=== PATIENT | male | born 1980 | race Two or more races ===

== ENCOUNTER 2020-12-14 14:02 | Emergency (ER) | payer MEDICAID ==
[~2020-12-14] VITALS: Ht 175.3 cm; Wt 99.8 kg
[2020-12-14] MEDS ORDERED: Morphine Sulfate 4mg/ml Inj (IV USE ONLY) IVP ONE (14:30)
[2020-12-14] MEDS ORDERED: Ketorolac 30mg Inj IV ONE (14:30)
[2020-12-14] MEDS ORDERED: DiphenhydrAMINE 50mg/ml Inj IVP ONE (14:30)
[2020-12-14] MEDS ORDERED: Metoclopramide 10mg/2ml Inj IVP ONE (14:30)
[2020-12-14 14:59] VITALS: BP 120/80
--- NOTE | 2020-12-14 15:02 | NUR ---
came to er complaints of left flank pain hx of stent placement in the left kidney x 3 months . per patient has hemayuria today seen at [facility] yesterday back today due to sever pain iv started meds given waiting for ultrasound
[2020-12-14 15:03] LABS: BASOPHILS % (AUTO) 0.6 % (0.0-2.0); EOSINOPHILS % (AUTO) 1.4 % (0.0-3.0); HEMATOCRIT 48.8 % (42.0-52.0); HEMOGLOBIN 16.1 G/DL (14.2-18.0); LYMPHOCYTES % (AUTO) 26.3 % (20.0-45.0); MEAN CORPUSCULAR VOLUME 86 FL (80-99); NEUTROPHILS % (AUTO) 64.7 % (45.0-75.0); PLATELET COUNT 281 K/UL (150-450); WHITE BLOOD COUNT 7.5 K/UL (4.8-10.8)
[2020-12-14 15:05] LABS: APPEARANCE,URINE SLIGHTLY CLOUDY; BILIRUBIN, URINE NEGATIVE (NEGATIVE); COLOR,URINE PALE YELLOW; GLUCOSE, URINE (UA) NEGATIVE (NEGATIVE); KETONES,URINE 1+ (NEGATIVE); LEUKOCYTE ESTERASE ,URINE 1+ (NEGATIVE); NITRITE,URINE NEGATIVE (NEGATIVE); PH,URINE 5 (4.5-8.0); PROTEIN,URINE 3+ (NEGATIVE); UROBILINOGEN,URINE NORMAL MG/DL (0.0-1.0)
--- NOTE | 2020-12-14 15:06 | Emergency Room Report ---
History of Present Illness General Chief Complaint: Male Urogenital Problems Source: Patient Present Illness HPI Patient presents with left flank pain. He had a stent placed 3 months ago. He denies any fevers or chills. In the morning he has hematuria which clears up during the day. He is always in pain and rates the pain 10/10. He denies taking any medication for the pain at this time. Denies nausea, vomiting or diarrhea. He is due to have the stent removed next Sunday but wants to have it done sooner. The patient was seen at [facility] last night and had an MRI performed. Patient denies exposure to Covid positive contacts. No sore throat, chest pain, palpitations, diarrhea, shortness of breath, joint pain, rashes, depression, anxiety, visual changes, dizziness, headache. He took his last Cipro this morning. He has [place] and Tylenol. He does not have Motrin. 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 Reviewed Nursing Documentation: PMH: Agreed; PSxH: Agreed Nursing Documentation-PMH Past Medical History: No History, Except For Hx COPD: No - KIDNEY STONES, STENT INFECTION Review of Systems All Other Systems: negative except mentioned in HPI Physical Exam Vital Signs Date Time Temp Pulse Resp B/P (MAP) Pulse Ox O2 Delivery O2 Flow Rate FiO2 12/14/20 14:14 98.4 105 18 118/77 (91) 95 Room Air Sp02 EP Interpretation: reviewed, normal General Appearance: well appearing, no apparent distress, GCS 15 Head: normocephalic Eyes: bilateral eye normal inspection, bilateral eye PERRL, bilateral eye EOMI ENT: moist mucus membranes Neck: supple Respiratory: lungs clear, normal breath sounds Cardiovascular #1: regular rate, rhythm Cardiovascular #2: 2+ radial (R) Gastrointestinal: normal inspection, normal bowel sounds, non tender, no mass, non-distended Genitourinary: CVA tenderness (L) - Reported Musculoskeletal: back normal, normal range of motion, gait/station normal Neurologic: alert, oriented x3, grossly normal Psychiatric: mood/affect normal Skin: no rash, warm/dry Medical Decision Making Diagnostic Impression: Primary Impression: Flank pain Additional Impressions: Left ureterovesicular stent Liver lesion ER Course Patient post renal stent placement here for evaluation and possible removal. Differential includes pyelonephritis, obstruction, UTI, painful stent amongst others. Patient evaluated with labs and ultrasound. Patient treated with IV hydration and analgesia. Patient has been on Cipro and stopped today. Labs with normal white count. Normal renal function. Some hematuria and mini mal pyuria. Ultrasound with minimal hydronephrosis left with stent. In addition liver mass noted. Patient improved with treatment. Discussed results with patient. No emergent condition at this time or need for inpatient treatment. Discussed the need for follow-up with the surgeons and neurologists at [facility]. Patient states he plans to go to [place] to have surgery performed there. Patient advised of the need of follow-up for the liver abnormality noted on ultrasound. Laboratory Tests Test 12/14/20 14:30 12/14/20 14:40 Urine Color Pale yellow Urine Appearance Slightly cloudy Urine pH 5 (4.5-8.0) Urine Specific [place] 1.020 (1.005-1.035) Urine Protein 3+ (NEGATIVE) H Urine Glucose (UA) Negative (NEGATIVE) Urine Ketones 1+ (NEGATIVE) H Urine Blood 5+ (NEGATIVE) H Urine Nitrite Negative (NEGATIVE) Urine Bilirubin Negative (NEGATIVE) Urine Urobilinogen Normal MG/DL (0.0-1.0) Urine Leukocyte Esterase 1+ (NEGATIVE) H Urine RBC 20-30 /HPF (0 - 0) H Urine WBC 5-10 /HPF (0 - 0) H Urine Squamous Epithelial Cells Occasional /LPF Urine Bacteria Occasional /HPF (NONE) White Blood Count 7.5 K/UL (4.8-10.8) Red Blood Count 5.70 M/UL (4.70-6.10) Hemoglobin 16.1 G/DL (14.2-18.0) Hematocrit 48.8 % (42.0-52.0) Mean Corpuscular Volume 86 FL (80-99) Mean Corpuscular Hemoglobin 28.3 PG (27.0-31.0) Mean Corpuscular Hemoglobin Concent 33.0 G/DL (32.0-36.0) Red Cell Distribution Width 12.0 % (11.6-14.8) Platelet Count 281 K/UL (150-450) Mean Platelet Volume 7.0 FL (6.5-10.1) Neutrophils (%) (Auto) 64.7 % (45.0-75.0) Lymphocytes (%) (Auto) 26.3 % (20.0-45.0) Monocytes (%) (Auto) 7.0 % (1.0-10.0) Eosinophils (%) (Auto) 1.4 % (0.0-3.0) Basophils (%) (Auto) 0.6 % (0.0-2.0) Prothrombin Time 12.1 SEC (9.30-11.50) H Prothrombin Time INR 1.1 (0.9-1.1) Activated Partial Thromboplast Time 32 SEC (23-33) Sodium Level 137 MMOL/L (136-145) Potassium Level 3.8 MMOL/L (3.5-5.1) Chloride Level 100 MMOL/L (98-107) Carbon Dioxide Level 26 MMOL/L (21-32) Anion Gap 11 mmol/L (5-15) Blood Urea Nitrogen 16 mg/dL (7-18) Creatinine 1.2 MG/DL (0.55-1.30) Estimated Glomerular Filtration Rate > 60 mL/min (>60) Glucose Level 115 MG/DL (74-106) H Calcium Level 9.3 MG/DL (8.5-10.1) Total Bilirubin 0.4 MG/DL (0.2-1.0) Aspartate Amino Transferase (AST) 29 U/L (15-37) Alanine Aminotransferase (ALT) 64 U/L (12-78) Alkaline Phosphatase 106 U/L (46-116) Total Creatine Kinase 160 U/L (26-308) Total Protein 8.5 G/DL (6.4-8.2) H Albumin 4.3 G/DL (3.4-5.0) Globulin 4.2 g/dL Albumin/Globulin Ratio 1.0 (1.0-2.7) Lipase 174 U/L (73-393) CT/MRI/US Diagnostic Results CT/MRI/US Diagnostic Results : Imaging Test Ordered: ultrasound abdomen Impression Impression: Hypoechoic right lobe liver lesion. There is nonspecific, diff erential considerations include neoplasm. Further evaluation with multiphasic liver protocol CT scan is recommended. This finding was discussed with nurse practitioner Renée Pearce in the emergency room at the time of interpretation Liver demonstrates diffusely increased echogenicity, consistent with diffuse hepatocellular disease, most likely fatty change. It is also enlarged. Left nephroureteral stent in place. Mild left hydronephrosis despite the stent Note incomplete visualization of the abdominal aorta Negative for gallstones or dilated bile ducts Last Vital Signs Date Time Temp Pulse Resp B/P (MAP) Pulse Ox O2 Delivery O2 Flow Rate FiO2 12/14/20 17:00 98.2 76 16 120/80 98 Room Air Status: improved Disposition: HOME, SELF-CARE Condition: Improved Scripts Ciprofloxacin Hcl* (CIPROFLOXACIN HCL*) 500 Mg Tablet 500 MG ORAL Q12H, #20 TAB 0 Refills Prov: Hardeep Hamilton MD 12/14/20 Ibuprofen* (MOTRIN*) 600 Mg Tablet 600 MG ORAL Q6H PRN for FOR PAIN, #20 TAB 0 Refills Prov: Hardeep Hamilton MD 12/14/20 Referrals: NOT CHOSEN IPA/,REFERRING (PCP) Hardeep Hamilton MD Dec 14, 2020 15:06
[2020-12-14 15:16] LABS: INR 1.1 (0.9-1.1)
[2020-12-14 15:18] LABS: ANION GAP 11 mmol/L (5-15); BLOOD UREA NITROGEN 16 mg/dL (7-18); CALCIUM 9.3 MG/DL (8.5-10.1); CARBON DIOXIDE 26 MMOL/L (21-32); CHLORIDE 100 MMOL/L (98-107); CREATININE 1.2 MG/DL (0.55-1.30); POTASSIUM 3.8 MMOL/L (3.5-5.1); SODIUM 137 MMOL/L (136-145)
[2020-12-14 15:21] LABS: ALANINE AMINOTRANSFERASE 64 U/L (12-78); ALBUMIN 4.3 G/DL (3.4-5.0); ALKALINE PHOSPHATASE 106 U/L (46-116); ASPARTATE AMINO TRANSFERASE 29 U/L (15-37); BILIRUBIN,TOTAL 0.4 MG/DL (0.2-1.0); CREATINE KINASE 160 U/L (26-308)
[2020-12-14] MEDS ORDERED: CIPROFLOXACIN500 M2 ORAL (16:02)
[2020-12-14] MEDS ORDERED: IBUPROFEN600 M1 ORAL (16:02)
[2020-12-14 17:00] VITALS: BP 120/80
--- NOTE | 2020-12-14 17:02 | NUR ---
discharged home with instruction and rx follow up with pmd
--- NOTE | 2020-12-14 17:04 | Diagnostic Imaging Report ---
Indication: Left flank pain and abdominal pain Technique: Galan-scale and duplex images of the upper abdomen were obtained Comparison: none Findings: Gallbladder is unremarkable, without stones, wall thickening, nor pericholecystic fluid. Sonographic Allan's sign is negative. Common bile duct measures 3 mm in diameter. No intrahepatic biliary ductal dilatation. Liver demonstrates diffuse increased echogenicity. It is enlarged. There is a hypoechoic lesion in the anterior right lobe which measures 2.3 x 1.3 cm x 2.5. Portal vein and hepatic veins are patent. Pancreas is unremarkable. Spleen is unremarkable. Left kidney measures 12.6 cm in length. Right kidney measures 11.5 cm length. Both kidneys demonstrate normal echogenicity. No hydronephrosis is seen on the right. There is very mild hydronephrosis on the left. A stent is seen in the left renal collecting system. The distal end of the stent is also seen within the bladder. Abdominal aorta is partially obscured by bowel gas, visualized portions are non-aneurysmal . Impression: Hypoechoic right lobe liver lesion. There is nonspecific, differential considerations include neoplasm. Further evaluation with multiphasic liver protocol CT scan is recommended. This finding was discussed with nurse practitioner Renée Pearce in the emergency room at the time of interpretation Liver demonstrates diffusely increased echogenicity, consistent with diffuse hepatocellular disease, most likely fatty change. It is also enlarged. Left nephroureteral stent in place. Mild left hydronephrosis despite the stent Note incomplete visualization of the abdominal aorta Negative for gallstones or dilated bile ducts
== END 2020-12-14 17:04 | disposition home or self-care (01) ==
LOC: EMR 14:44
DX: R10.9 Unspecified abdominal pain (principal); K76.9 Liver disease, unspecified; R31.9 Hematuria, unspecified; R82.81 Pyuria; N13.30 Unspecified hydronephrosis
CPT/HCPCS: 36415; 76700; 80053; 81003; 82550; 83690; 85025; 85610; 85730; 86850; 86900; 86901; 96361; 96374; 96375; J1200; J1885; J2270; J2765; Z7502; 99284